=== PATIENT | female | born 1935 | race Caucasian/White ===

== ENCOUNTER 2019-10-27 03:24 | Emergency (ER) | payer OTHER ==
[2019-10-27 03:24] VITALS: BP 153/103
--- OUTSIDE RECORDS SUMMARY | 2019-10-27 03:32 | XMS REPORT | Continuity of Care Document ---
Author Organization Unknown Address Unknown Phone Unavailable Allergies There is no data. Medications There is no data. Problems There is no data. Procedures There is no data. Results There is no data. Encounters ACCT No. Visit Date/Time Discharge Status Pt. Type Provider Facility Loc./Unit Complaint [id number] 10/27/2019 03:27:[address] Emergency [facility], [place] [facility] ER AMS
--- NOTE | 2019-10-27 04:01 | ED General ---
General Chief Complaint: Altered Mental Status Stated Complaint: AMS Nursing Triage Note: TO ED ROOM 6 [facility]IA [facility]. PT WAS FOUND IN TOWN WITH WALKER SE[place]AL BLOCKS FROM [facility] (LOCAL [facility]IV[facility]). [place] [employer] CALLED EMS UNABLE TO OBTAIN INFO ABOUT/FROM PT. PT CAN ONLY STATE NAME "JUVENTINO PRINCE" UNABLE TO GIVE , WHERE SHE LIVES, FAMILY, ETC. ON ARRIVAL TO ED PT IS PLEASANT, NO DISTRESS OR DISCOMFORT NOTED. Nursing Sepsis Screen: No Definite Risk Source of Information: Patient, EMS Exam Limitations: Other (Dementia) History of Present Illness Date Seen by Provider: Oct 27, 2019 Time Seen by Provider: 03:27 Initial Comments This delightfully demented woman is brought to the emergency room via EMS after she was found wandering around by the street near [facility]. She identified herself as normal in August but did not get a last name. Eventually, [facility] contacted the ER and notified us of a missing patient by the name of Juventino Underwood. Allergies and Home Medications Patient Home Medication List Home Medication List Reviewed: Yes Review of Systems Review of Systems Constitutional: no symptoms reported EENTM: no symptoms reported Respiratory: no symptoms reported Cardiovascular: no symptoms reported Gastrointestinal: no symptoms reported Genitourinary: no symptoms reported : No Musculoskeletal: no symptoms reported Skin: no symptoms reported Psychiatric/Neurological: See HPI Hematologic/Lymphatic: No Symptoms Reported Past Fdcnrin-Koraow-Nszfxq Hx Past Med/Social Hx: Reviewed Nursing Past Med/Soc Hx Patient Social History Alcohol Use: Denies Use Recreational Drug Use: No Recent Foreign Travel: No Contact w/Someone Who Travel: No Recent Infectious Disease Expo: No Past Medical History Surgeries: No (none known) Respiratory: No (none known) Cardiac: No (none known) Neurological: Yes Dementia : No Genitourinary: No (none known) Gastrointestinal: No (none known) Musculoskeletal: No (none known) Endocrine: No (none known) HEENT: No (none known) Cancer: No (none known) Psychosocial: No (none known) Physical Exam Vital Signs Vital Signs - First Documented 10/27/19 03:24 Pulse 71 Resp 16 B/P (MAP) 153/103 (120) O2 Delivery Room Air Capillary Refill : Less Than 3 Seconds Height, Weight, BMI Height: '" Weight: lbs. oz. kg; BMI Method: General Appearance: No Apparent Distress, WD/WN HEENT: PERRL/EOMI, Normal ENT Inspection Neck: Normal Inspection Respiratory: Lungs Clear, Normal Breath Sounds, No Accessory Muscle Use Cardiovascular: Regular Rate, Rhythm, No Edema, No Murmur Gastrointestinal: Normal Bowel Sounds, Non Tender, Soft Extremity: Normal Inspection, No Pedal Edema Neurologic/Psychiatric: Alert, No Motor/Sensory Deficits, Normal Mood/Affect, screen tender II-XII Norm as Tested, Other (delightful a confused) Skin: Normal Color, Warm/Dry Progress/Results/Core Measures Suspected Sepsis Recent Fever Within 48 Hours: No Infection Criteria Present: None New/Unexplained Altered Menta: No Sepsis Screen: No Definite Risk SIRS Temperature: Pulse: 71 Respiratory Rate: 16 Blood Pressure 153 /103 Mean: 120 Results/Orders Vital Signs/I&O 10/27/19 03:24 Pulse 71 Resp 16 B/P (MAP) 153/103 (120) O2 Delivery Room Air Capillary Refill : Less Than 3 Seconds Blood Pressure Mean: 120 Progress Note : Progress Note Staff from [facility] was able to present to the emergency room and positively identify the patient. They report she is at her baseline mentation. She was somehow able to the [place] out the back door of the facility. Departure Impression Primary Impression: Dementia Qualified Codes: F03.90 - Unspecified dementia without behavioral disturbance Disposition: 01 HOME, SELF-CARE Condition: Stable Departure-Patient Inst. Decision time for Depature: 04:00 Referrals: UNKNOWN (PCP) Primary Care Physician Patient Instructions: Dementia (DC) [place] ARREDONDO MD Oct 27, 2019 04:01
--- NOTE | 2019-10-27 04:20 | NUR ---
ESTEFANIA ALLEN FROM [facility] HERE AND IDENTIFIED PT AND STATES SHE IS AT HER NORMAL BASELINE. PT DC'D WITH WALKER SHE ARRIVED WITH.
== END 2019-10-27 04:20 ==
LOC: ER 03:27 → EDBD 03:27 → ER 04:20
DX: F03.90 Unspecified dementia, unspecified severity, without behavioral disturbance, psychotic disturbance, mood disturbance, and anxiety (principal); Z91.83 Wandering in diseases classified elsewhere
CPT/HCPCS: 99283

== ENCOUNTER → 2019-10-27 | Outpatient (CLI) | payer MEDICARE, OTHER ==
[~2019-10-27] MED LIST: AC325T PO; ALEN70TA47 PO; CALC-80 PO; CPR500T PO; GALA4TAB PO; LOSA1TAB20 PO; METR500T PO; ONDN4T PO; SIMV20TA3 PO
[2019-10-27 17:06] LABS: BILIRUBIN,URINE NEGATIVE (NEGATIVE); CLARITY,URINE SL CLOUDY; COLOR,URINE YELLOW; GLUCOSE, URINE (UA) NEGATIVE (NEGATIVE); KETONES,URINE NEGATIVE (NEGATIVE); LEUKOCYTE ESTERASE ,URINE NEGATIVE (NEGATIVE); NITRITE,URINE NEGATIVE (NEGATIVE); PH,URINE 5.5 (5-9); PROTEIN,URINE NEGATIVE (NEGATIVE)
[2019-10-27 17:14] LABS: AMORPHOUS SEDIMENT,UR MOD AMOR URATES /LPF; BACTERIA,URINE MODERATE /HPF; SQUAMOUS EPITHELIAL CELL,UR 0-2 /HPF; WBC,URINE 0-2 /HPF
== END ==
LOC: LABNPT 17:01
PROVIDERS: ATTEND Internal Medicine
DX: N39.0 Urinary tract infection, site not specified (principal)
CPT/HCPCS: 81000; 87077; 87088; 87186

== ENCOUNTER 2022-03-18 14:06 | Emergency (ER) | payer MEDICARE, OTHER ==
[~2022-03-18] VITALS: Ht 160 cm; Wt 68.0 kg
[2022-03-18 14:06] VITALS: BP 137/74
--- NOTE | 2022-03-18 14:46 | ED General ---
General Chief Complaint: General Problems/Pain Stated Complaint: DECLINE TO HEALTH Source of Information: Family Exam Limitations: Other (severe dementia) History of Present Illness Date Seen by Provider: Mar 18, 2022 Time Seen by Provider: 14:35 Initial Comments 87-year-old female with a history of dementia presents from [facility]. Caregiver reports decrease in appetite and generalized weakness over the last 3 days. Patient has severe dementia, history obtained from family and caregiver. There has been several cases of influenza in the facility. Family would like her checked out today due to generalized weakness. Caregiver denies fever, cough, vomiting, or diarrhea. Timing/Duration: 2-3 Days Associated Systoms: Denies Symptoms Allergies and Home Medications Allergies Coded Allergies: NKANo Known Allergies (Verified Allergy, Unknown, 10/29/19) Patient Home Medication List Home Medication List Reviewed: Yes Cefuroxime Axetil (Cefuroxime) 500 Mg Tablet, 500 MG PO BID Prescribed by: Mony Justin on 03/18/22 1644 Review of Systems Review of Systems Constitutional: weakness Respiratory: no symptoms reported; No cough Gastrointestinal: No diarrhea; loss of appetite; No nausea, No vomiting Genitourinary: no symptoms reported Psychiatric/Neurological: Weakness Past Hacmqnm-Rpqwai-Gjqwxo Hx Patient Social History Tobacco Use?: No Use of E-Cig and/or Vaping dev: No Substance use?: No Alcohol Use?: No Immunizations Up To Date Influenza Vaccine Up-to-Date: Yes; Up-to-Date First/Initial COVID19 Vaccinat: 2020 Second COVID19 Vaccination Jhonatan: 2020 Third COVID19 Vaccination Date: NONE COVID19 Vaccine 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, [employer]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 Past Medical History Surgery/Hospitalization HX: DEMENTIA Surgeries: No (none known) Hysterectomy, Orthopedic Respiratory: No (none known) Cardiac: No (none known) High Cholesterol, Hypertension Neurological: Yes Dementia 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 oz. [id number]; 29.26 BMI Method:Stated General Appearance: No Apparent Distress, WD/WN Neck: Normal Inspection, Supple Respiratory: Decreased Breath Sounds (unable to follow directions to take deep breath) Cardiovascular: Regular Rate, Rhythm Neurologic/Psychiatric: Alert, Disoriented (at baseline) Progress/Results/Core Measures Suspected Sepsis SIRS Temperature: Pulse: Respiratory Rate: Laboratory Tests 03/18/22 16:10: White Blood Count 10.9 Blood Pressure / Mean: Laboratory Tests 03/18/22 16:10: Platelet Count 255 03/18/22 16:17: Creatinine 0.90, Total Bilirubin 0.4 Results/Orders Lab Results Laboratory Tests Test 03/18/22 14:59 03/18/22 15:18 03/18/22 16:10 03/18/22 16:17 Range/Units Influenza Type A (RT-PCR) Not Detected Not Detecte Influenza Type B (RT-PCR) Not Detected Not Detecte SARS-CoV-2 RNA (RT-PCR) Not Detected Not Detecte Urine Color YELLOW Urine Clarity CLOUDY Urine pH 6.0 5-9 Urine Specific [place] 1.020 1.016-1.022 Urine Protein 1+ H NEGATIVE Urine Glucose (UA) NEGATIVE NEGATIVE Urine Ketones NEGATIVE NEGATIVE Urine Nitrite POSITIVE H NEGATIVE Urine Bilirubin NEGATIVE NEGATIVE Urine Urobilinogen 0.2 < = 1.0 MG/DL Urine Leukocyte Esterase 3+ H NEGATIVE Urine RBC (Auto) 2+ H NEGATIVE Urine RBC NONE /HPF Urine WBC >100 H /HPF Urine Squamous Epithelial Cells 0-2 /HPF Urine Crystals NONE /LPF Urine Bacteria LARGE H /HPF Urine Casts NONE /LPF Urine Mucus NEGATIVE /LPF Urine Culture Indicated YES White Blood Count 10.9 4.3-11.0 10^3/uL Red Blood Count 3.51 L 3.80-5.11 10^6/uL Hemoglobin 11.0 L 11.5-16.0 g/dL Hematocrit 35 35-52 % Mean Corpuscular Volume 99 80-99 fL Mean Corpuscular Hemoglobin 31 25-34 pg Mean Corpuscular Hemoglobin Concent 32 32-36 g/dL Red Cell Distribution Width 12.0 10.0-14.5 % Platelet Count 255 130-400 10^3/uL Mean Platelet Volume 9.1 9.0-12.2 fL Immature Granulocyte % (Auto) 0 % Neutrophils (%) (Auto) 68 42-75 % Lymphocytes (%) (Auto) 18 12-44 % Monocytes (%) (Auto) 12 0-12 % Eosinophils (%) (Auto) 1 0-10 % Basophils (%) (Auto) 1 0-10 % Neutrophils # (Auto) 7.5 1.8-7.8 10^3/uL Lymphocytes # (Auto) 2.0 1.0-4.0 10^3/uL Monocytes # (Auto) 1.3 H 0.0-1.0 10^3/uL Eosinophils # (Auto) 0.1 0.0-0.3 10^3/uL Basophils # (Auto) 0.1 0.0-0.1 10^3/uL Immature Granulocyte # (Auto) 0.0 0.0-0.1 10^3/uL Sodium Level 141 135-145 MMOL/L Potassium Level 4.3 3.6-5.0 MMOL/L Chloride Level 106 98-107 MMOL/L Carbon Dioxide Level 23 21-32 MMOL/L Anion Gap 12 5-14 MMOL/L Blood Urea Nitrogen 21 H 7-18 MG/DL Creatinine 0.90 0.60-1.30 MG/DL Estimat Glomerular Filtration Rate 62 BUN/Creatinine Ratio 23 Glucose Level 101 70-105 MG/DL Calcium Level 9.8 8.5-10.1 MG/DL Corrected Calcium 10.0 8.5-10.1 MG/DL Total Bilirubin 0.4 0.1-1.0 MG/DL Aspartate Amino Transf (AST/SGOT) 21 5-34 U/L Alanine Aminotransferase (ALT/SGPT) 36 0-55 U/L Alkaline Phosphatase 132 40-136 U/L Total Protein 7.3 6.4-8.2 GM/DL Albumin 3.8 3.2-4.5 GM/DL My Orders Orders - MONY JUSTIN R HOME CARE AIDE Cbc With Automated Diff (03/18/22 14:35) Comprehensive Metabolic Panel (03/18/22 14:35) Chest 1 View, Ap/Pa Only (03/18/22 14:35) Covid 19 Inhouse Test (03/18/22 14:35) Influenza A And B By Pcr (03/18/22 14:35) Ua Culture If Indicated (03/18/22 14:35) Straight Cath For Spec.-Adult (03/18/22 14:35) Ed Iv/Invasive Line Start (03/18/22 14:49) Urine Culture (03/18/22 15:18) Ceftriaxone 1 Gm Pre-Mix (Rocephin 1 Gm (03/18/22 15:45) Medications Given in ED Current Medications Medications Dose Ordered Sig/Sandra Route Start Time Stop Time Status Last Admin Dose Admin Ceftriaxone Sodium/Dextrose 50 ml @ 100 mls/hr ONCE ONCE IV 03/18/22 15:45 03/18/22 16:14 DC 03/18/22 16:18 100 MLS/HR Vital Signs/I&O 03/18/22 14:06 Temp 36.2 Pulse 94 Resp 22 B/P (MAP) 137/74 (95) Pulse Ox 98 O2 Delivery Nasal Cannula O2 Flow Rate 2.00 Capillary Refill : Progress Note : Time: 15:02 Progress Note Basic labs, UA, and chest x-ray obtained to assess for any infections, or any other reasons for decrease in appetite and decrease in function. Departure Impression Primary Impression: Urinary tract infection Additional Impression: Pneumonia Disposition: 01 HOME, SELF-CARE Condition: Stable Departure-Patient Inst. Decision time for Depature: 16:45 Referrals: CASSIE BAH MD (PCP/Family) Primary Care Physician Patient Instructions: Urinary Tract Infections in Adults, Community-Acquired Pneumonia in Adults Add. Discharge Instructions: Take antibiotic as directed. Complete all of the antibiotic prescription even if she starts to feel better. Monitor for fever and treat as needed. Follow-up with primary care provider. Return for any new or worsening symptoms, decreased functioning, increased weakness, increased confusion, difficulty breathing. All discharge instructions reviewed with patient and/or family. Voiced understanding. Scripts Cefuroxime Axetil (Cefuroxime) 500 Mg Tablet 500 MG PO BID for 10 Days, #20 TAB 0 Refills Prov: MONY JUSTIN APRN 03/18/22 MONY JUSTIN APRN Mar 18, 2022 14:46
--- NOTE | 2022-03-18 15:14 | Diagnostic Imaging Report ---
INDICATION: Altered mental status. COMPARISON: 02/25/2016 FINDINGS: Single frontal radiographic view of the chest was obtained and demonstrates low inspiratory volumes with asymmetric patchy and confluent airspace opacity in the left base. No large effusion or pneumothorax is seen. Cardiac silhouette and pulmonary vasculature are within normal limits. Osseous structures show no gross acute abnormalities IMPRESSION:. Low lung volumes with new left basilar atelectasis and/or infiltrate. Dictated by: Dictated on workstation # [id number]
[2022-03-18 15:24] LABS: BILIRUBIN,URINE NEGATIVE (NEGATIVE); CLARITY,URINE CLOUDY; COLOR,URINE YELLOW; GLUCOSE, URINE (UA) NEGATIVE (NEGATIVE); KETONES,URINE NEGATIVE (NEGATIVE); LEUKOCYTE ESTERASE ,URINE 3+ (NEGATIVE); NITRITE,URINE POSITIVE (NEGATIVE); PROTEIN,URINE 1+ (NEGATIVE)
[2022-03-18 15:33] LABS: BACTERIA,URINE LARGE /HPF; SQUAMOUS EPITHELIAL CELL,UR 0-2 /HPF; WBC,URINE >100 /HPF
[2022-03-18] MEDS ORDERED: cefTRIAXone 1 GM PRE-MIX 50 ML IV ONE (15:45)
[2022-03-18 16:25] LABS: BASOPHILS # (AUTO) 0.1 10^3/uL (0.0-0.1); BASOPHILS % (AUTO) 1 % (0-10); EOSINOPHILS # (AUTO) 0.1 10^3/uL (0.0-0.3); EOSINOPHILS % (AUTO) 1 % (0-10); HEMATOCRIT 35 % (35-52); LYMPHOCYTES % (AUTO) 18 % (12-44); MEAN CORPUSCULAR HEMOGLOBIN 31 pg (25-34); MEAN CORPUSCULAR HGB CONC 32 g/dL (32-36); MEAN CORPUSCULAR VOLUME 99 fL (80-99); MEAN PLATELET VOLUME 9.1 fL (9.0-12.2); MONOCYTES # (AUTO) 1.3 10^3/uL (0.0-1.0); MONOCYTES % (AUTO) 12 % (0-12); NEUTROPHILS # (AUTO) 7.5 10^3/uL (1.8-7.8); NEUTROPHILS % (AUTO) 68 % (42-75); PLATELET COUNT 255 10^3/uL (130-400); WHITE BLOOD COUNT 10.9 10^3/uL (4.3-11.0)
[2022-03-18 16:30] LABS: ALBUMIN 3.8 GM/DL (3.2-4.5); POTASSIUM 4.3 MMOL/L (3.6-5.0)
[2022-03-18 16:31] LABS: CALCIUM 9.8 MG/DL (8.5-10.1)
[2022-03-18 16:32] LABS: TOTAL PROTEIN 7.3 GM/DL (6.4-8.2)
[2022-03-18 16:34] LABS: BILIRUBIN,TOTAL 0.4 MG/DL (0.1-1.0)
[2022-03-18 16:36] LABS: CREATININE SERUM 0.9 MG/DL (0.60-1.30)
[2022-03-18] MEDS ORDERED: CEFU500T63 PO (16:44)
== END 2022-03-18 17:05 | disposition home or self-care (01) ==
LOC: EDUNIT# 14:06 → ER 14:07
DX: N39.0 Urinary tract infection, site not specified (principal); J18.9 Pneumonia, unspecified organism; F03.C0 Unspecified dementia, severe, without behavioral disturbance, psychotic disturbance, mood disturbance, and anxiety; Z20.822 Contact with and (suspected) exposure to COVID-19
CPT/HCPCS: 36415; 51701; 71045; 80053; 81000; 85025; 87077; 87088; 87186; 87636